=== PATIENT | male | born 1995 | race Asian ===

== ENCOUNTER 2017-05-27 19:34 | Emergency (ER) | payer OTHER ==
[~2017-05-27] VITALS: Ht 170.2 cm; Wt 91.5 kg
[2017-05-27 19:38] VITALS: TEMP 36.9; O2SAT 100; Ht 170.2 cm; Wt 91.5 kg
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
[2017-05-27] MEDS ORDERED: OPTIRAY 320 IV PRN (20:00)
[2017-05-27 20:21] VITALS: O2SAT 100
[2017-05-27 20:38] LABS: ISTAT IONIZED CALCIUM 1.14 mmol/l (1.12-1.32); ISTAT POTASSIUM 3.4 mEq/L (3.3-5.0)
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
[2017-05-27] MEDS ORDERED: LIDOCAINE/EPINEPH/TETRACAINE 1 EA SYR EXT STA (22:14)
[2017-05-27] MEDS ORDERED: XYLOCAINE 1%/SOD BICARB 20 ML VIAL INFIL ONE (22:15)
[2017-05-27 22:23] VITALS: PULSE 68
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
[2017-05-28] VITALS: BP 127/47
== END 2017-05-28 00:12 | disposition home or self-care (01) ==
LOC: EDBD → C.EDC 19:35
DX: S01.81XA Laceration without foreign body of other part of head, initial encounter (principal); S10.91XA Abrasion of unspecified part of neck, initial encounter; S20.319A Abrasion of unspecified front wall of thorax, initial encounter; S60.311A Abrasion of right thumb, initial encounter; S80.811A Abrasion, right lower leg, initial encounter; M79.605 Pain in left leg; V03.10XA Pedestrian on foot injured in collision with car, pick-up truck or van in traffic accident, initial encounter; Y93.89 Activity, other specified; Y92.410 Unspecified street and highway as the place of occurrence of the external cause; Z91.018 Allergy to other foods

== ENCOUNTER 2017-06-01 20:33 | Emergency (ER) | payer OTHER ==
[~2017-06-01] VITALS: Ht 170.2 cm; Wt 90.2 kg
[2017-06-01 20:39] VITALS: TEMP 36.8; Ht 170.2 cm; Wt 90.2 kg
[2017-06-01 21:18] VITALS: BP 139/61; PULSE 82; O2SAT 98
--- NOTE | 2017-06-01 22:30 | EMERGENCY ROOM VISIT NOTE ---
History First contact with patient: 20:48 Chief Complaint: SUTURE/STAPLE REMOVAL Stated Complaint: SUTURE REMOVAL Nursing Triage Summary: Patient requesting suture removal from chin. History of Present Illness The patient is a 22 year old male who presents to the Emergency Room for suture removal from a chin laceration that was repaired in our department 5 days ago. She denies any wound complications or drainage from the chin. He has not been cleaning the wounds on his chin or neck region, nor has he been applying an antibiotic ointment or Vaseline. He denies any pain. Review of Systems 6 system review was performed and was negative except for pertinent positives and negatives as indicated in history of present illness Past Medical/Surgical History Medical Problems: (1) No Known Active Medical Problems Family History Patient reports no known family medical history. Social History Smoking Status: Never Smoker Drug Use: none Marital Status: single Occupation Status: [employer] student Current/Historical Medications No Active Prescriptions or Reported Meds Physical Exam Vital Signs Date Time Temp Pulse Resp B/P (MAP) Pulse Ox O2 Delivery O2 Flow Rate FiO2 06/01/17 21:18 82 16 98 06/01/17 20:39 36.8 126 18 135/80 97 Room Air Physical Exam HEENT: Examination of the chin shows a large scab wound with poorly visible sutures. No peripheral erythema or induration noted. NECK: The patient has additional scab wounds on the upper chest/anterior neck region without signs of secondary infection. They also are dry in appearance. Medical Decision & Procedures ED Course Patient history and physical exam were performed. I did review documentation from the patient's ER visit 5 days ago. Documentation shows that a total of nine 5-0 nylon simple directed sutures were used to approximate the chin laceration. However, I only was able to visualize 5, and remove 5 sutures. There was significant crusting/scabbing of the wound. In order to avoid any further wound complications or diastases, I encourage the patient to continue applying Neosporin antibiotic ointment, or vitamin E oil to the scab wounds, and return on Friday for wound recheck. The patient was advised that I would be in the emergency department from 7 AM to 5 PM. The patient voiced understanding of all discharge instructions, and denied any pain at the time of discharge. Medical Decision Blood Pressure Screening Patient's blood pressure: Normal blood pressure Impression Primary Impression: Laceration of chin Departure Information Dispostion Home / Self-Care Prescriptions No Active Prescriptions or Reported Meds Forms HOME CARE DOCUMENTATION FORM, IMPORTANT VISIT INFORMATION Patient Instructions My [facility] Additional Instructions Return on Fri for wound recheck. Continue to apply Neosporin or vitamin E oil to the scab. Problem Qualifiers Primary Impression: Laceration of chin Encounter type: subsequent encounter Qualified Codes: S01.81XD - Laceration without foreign body of other part of head, subsequent encounter
== END 2017-06-01 21:18 | disposition home or self-care (01) ==
LOC: C.EDB 20:35 → C.EDD 21:18
DX: S01.81XD Laceration without foreign body of other part of head, subsequent encounter (principal); X58.XXXD Exposure to other specified factors, subsequent encounter

== ENCOUNTER 2017-06-06 19:30 | Emergency (ER) | payer OTHER ==
[~2017-06-06] VITALS: Ht 170.2 cm; Wt 90.0 kg
[2017-06-06 19:38] VITALS: TEMP 36.9; Ht 170.2 cm; Wt 90.0 kg
--- NOTE | 2017-06-06 19:46 | EMERGENCY ROOM VISIT NOTE ---
ED Visit Note First contact with patient: 19:41 CHIEF COMPLAINT: Suture removal This patient returns to the ED today for removal of sutures that were placed 10 days ago on the patient's chin. He states he was seen here 3 days ago and had some of the sutures removed, but states that some were left in because the wound was not fully healed. There has been no swelling, redness, or drainage from the wound. He states he has not been applying any antibiotic ointment or Vaseline to the wound, and has not been performing any other wound care. REVIEW OF SYSTEMS: Head: No headache, injury or neck pain. Skin: No rash, new lesions, or masses. General: No fever or chills, fatigue, loss of appetite , or significant recent weight gain or loss. PMH: The patient is healthy; there is no significant medical or surgical history. SOCIAL HISTORY: Patient lives at home. PHYSICAL EXAM: Vital Signs: Reviewed Nurse's notes. There is a sutured wound on the chin with no signs of infection. There is no erythema, swelling, or tenderness. There is no drainage. There is a significant amount of crusting and scabbing over the wound, obscuring the sutures, approximately 3cm in length. EMERGENCY DEPARTMENT COURSE: I examined the patient. The laceration does appear to be well-healed, however the sutures are fully obscured by significant amount of scabbing over the wound. I did review prior documentation from patient's previous recent visits, noting that he was seen here 3 days ago and had 5 sutures removed, but 4 sutures are still remaining, and he was encouraged to return in 3 days for re-evaluation of his wound. The crusting material was debrided from the wound surface, approximately 3 cm, to expose the underlying sutures. Four sutures were then easily removed from the chin laceration without any difficulty and there was no separation of the wound edges. There was some raw skin along the wound secondary to removing the encrusted tissue, this was irrigated and cleansed with saline, bacitracin was applied and the area was covered with a bandage. The patient was educated regarding continued wound care, follow-up, and return precautions, he verbalized understanding. The patient was discharged home in stable condition and ambulatory. Current/Historical Medications No Active Prescriptions or Reported Meds Allergies Coded Allergies: Apple (Verified Allergy, Intermediate, "ITCHY THROAT", 05/27/17) Vital Signs Date Time Temp Pulse Resp B/P (MAP) Pulse Ox O2 Delivery O2 Flow Rate FiO2 06/06/17 20:14 81 18 98 06/06/17 19:38 36.9 81 18 114/75 98 Room Air Departure Information Impression Primary Impression: Encounter for removal of sutures Dispostion Home / Self-Care Condition GOOD Prescriptions No Active Prescriptions or Reported Meds Referrals No Doctor, Assigned (PCP) Patient Instructions ED Laceration Chin Sutr Tape, [facility] Additional Instructions Keep the wound clean and dry. Do not allow any crusting or dried blood to accumulate on sutures. If this occurs, use a 1:1 solution of hydrogen peroxide/ water on a Q-tip to clean the wound. Do not submerge the wound under water until the skin is fully healed. Use an antibiotic ointment for the next 3 days, then let wound dry. Keep covered with a Band-Aid. As with all lacerations, there may be temporary or permanent nerve damage or scarring. Keep covered when in sun until sutures removed then SPF 50 or higher for one year. Vitamin E oil if desired two weeks after suture removal for reduction of scar. Please seek immediate medical attention for any signs of infection (increasing redness, swelling, pus drainage, streaking up the arm, fever/chills).
[2017-06-06 20:14] VITALS: BP 114/75; PULSE 81; O2SAT 98
== END 2017-06-06 20:14 | disposition home or self-care (01) ==
LOC: C.EDB 19:31 → C.EDD 20:14
DX: S01.81XD Laceration without foreign body of other part of head, subsequent encounter (principal); X58.XXXD Exposure to other specified factors, subsequent encounter; Z91.018 Allergy to other foods